=== PATIENT | female | born 1985 | race Caucasian/White ===

== ENCOUNTER 2018-01-12 20:04 | Emergency (ER) | payer SELFPAY ==
[~2018-01-12] VITALS: Ht 157.5 cm; Wt 59.0 kg
[2018-01-12] MEDS ORDERED: SODIUM CHLORIDE 0.9% 1,000 ML IV ONE (22:15)
[2018-01-12] MEDS ORDERED: CYCLOBENZAPRINE 10MG TABLET PO ONE (22:15)
[2018-01-12] MEDS ORDERED: METOCLOPRAMIDE HCL 10MG/2ML VIAL IV ONE (22:15)
[2018-01-12] MEDS ORDERED: KETOROLAC 30MG/ML VIAL IV ONE (22:15)
[2018-01-13 00:40] VITALS: BP 118/58
== END 2018-01-13 00:48 | disposition home or self-care (01) ==
LOC: ER 20:04
DX: G44.229 Chronic tension-type headache, not intractable (principal)
CPT/HCPCS: 96361; 96374; 99284; J1885; J7030; Z7610